=== PATIENT | female | born 1965 | race Caucasian/White ===

== ENCOUNTER 2018-12-05 19:52 | Emergency (ER) | payer SELFPAY ==
[2018-12-05] MEDS: OXYCODONE/ACETAMINOPHEN (5/325) TAB PO (22:39)
== END 2018-12-05 23:06 | disposition home or self-care (01) ==
LOC: FTE 19:52
DX: G44.319 Acute post-traumatic headache, not intractable (principal); M54.2 Cervicalgia; I10 Essential (primary) hypertension; E11.9 Type 2 diabetes mellitus without complications
CPT/HCPCS: 70450; 72125; 99284-25